=== PATIENT | female | born 1985 | race Caucasian/White ===

== ENCOUNTER 2022-03-25 02:52 | Emergency (ER) | payer OTHER ==
[~2022-03-25] VITALS: Ht 167.6 cm; Wt 79.4 kg
[2022-03-25 03:00] VITALS: BP 127/90
--- NOTE | 2022-03-25 03:03 | NUR ---
TO LOBBY A/W BED AMBULATORY
[2022-03-25 03:42] LABS: APPEARANCE,URINE SL CLOUDY (CLEAR); BILIRUBIN,URINE 1+ (NEGATIVE); BLOOD, URINE 2+ (NEGATIVE); COLOR,URINE YELLOW (YELLOW); LEUKOCYTE ESTERASE ,URINE NEGATIVE (NEGATIVE); NITRITE, URINE NEGATIVE (NEGATIVE); UGLUCOSE NEGATIVE (NEGATIVE)
--- NOTE | 2022-03-25 03:44 | NUR ---
PT AMBULATED TO BED NO 3.
[2022-03-25 03:50] LABS: RBC,URINE 0-5 /HPF (0-5); WBC,URINE 0-5 /HPF (0-5)
[2022-03-25 03:51] LABS: URINE AMORPHOUS URATE 1+ /HPF (None Seen)
--- NOTE | 2022-03-25 04:00 | NUR ---
FOOT PAIN AND SWELLING, NO TRAUMA NOR INJURY, RASHES ON HER BACK, AND WANTED STD TEST.
[2022-03-25] MEDS ORDERED: KETOROLAC 60 MG/2 ML VIAL IM ONE (04:05)
[2022-03-25] MEDS ORDERED: IBUP-2213 PO (04:08)
== END 2022-03-25 04:15 | disposition home or self-care (01) ==
LOC: MED 02:52
DX: R60.9 Edema, unspecified (principal); F17.200 Nicotine dependence, unspecified, uncomplicated
CPT/HCPCS: 81001; 81025; 87086; 87491; 96372; 99283; J1885